=== PATIENT | female | born 1995 | race Two or more races ===

== ENCOUNTER 2018-08-15 13:20 | Inpatient (IN) | payer MEDICAID ==
[~2018-08-15] VITALS: Ht 160 cm; Wt 53.5 kg
[2018-08-15 16:33] LABS: HEMATOCRIT. 24.5 % (36.0-48.0); MEAN CORPUSCULAR HEMOGLOBIN 13.5 pg (28.0-32.0); MEAN CORPUSCULAR VOLUME 50.5 fL (81.0-99.0); PLATELET 444 x1000/uL (130-400); RED BLOOD CELL COUNT 4.84 mill/uL (4.2-5.4); RED CELL DISTRIBUTION WIDTH 22.9 % (11.6-14.6)
[2018-08-15 16:36] LABS: HEMOGLOBIN. 6.6 g/dL (12.0-16.0)
[2018-08-15 16:39] LABS: INR 1.3; PROTHROMBIN TIME 13.3 sec (9.1-11.1)
[2018-08-15 16:41] LABS: CHLORIDE 108 mEq/L (98-107)
[2018-08-15 16:57] LABS: PLATELET ESTIMATE INCREASED
[2018-08-15] MEDS ORDERED: SODIUM CHLORIDE 0.9% 1,000 ML IV SCH (18:44)
[2018-08-15 19:06] LABS: CLARITY URINE CLEAR (CLEAR); COLOR URINE YELLOW (YELLOW); KETONES URINE NEGATIVE (NEGATIVE); LEUKOCYTE ESTERASE URINE 3+ (NEGATIVE); NITRITE URINE NEGATIVE (NEGATIVE); OCCULT BLOOD URINE TRACE (NEGATIVE); PROTEIN URINE NEGATIVE (NEGATIVE); SPECIFIC GRAVITY URINE 1.011 (1.005-1.030); UROBILINOGEN URINE 0.2 E.U./dL (0.2-1.0)
[2018-08-16] VITALS (7 sets, daily range): BP systolic 101–120; BP diastolic 56–80
[2018-08-16 03:09] LABS: HEMATOCRIT. 28.6 % (36.0-48.0); HEMOGLOBIN. 7.9 g/dL (12.0-16.0); MEAN CORPUSCULAR HEMOGLOBIN 15.1 pg (28.0-32.0); MEAN CORPUSCULAR VOLUME 54.6 fL (81.0-99.0); MEAN PLATELET VOLUME 8.6 fl (7.4-10.4); PLATELET 398 x1000/uL (130-400); RED BLOOD CELL COUNT 5.24 mill/uL (4.2-5.4); RED CELL DISTRIBUTION WIDTH 27.9 % (11.6-14.6)
[2018-08-16 03:10] LABS: INR 1.3; PROTHROMBIN TIME 13.4 sec (9.1-11.1)
[2018-08-16 05:31] LABS: PLATELET ESTIMATE NORMAL
[2018-08-16 10:58] LABS: HEMATOCRIT. 28.3 % (36.0-48.0); HEMOGLOBIN. 7.7 g/dL (12.0-16.0); MEAN CORPUSCULAR HEMOGLOBIN 14.7 pg (28.0-32.0); MEAN CORPUSCULAR VOLUME 53.9 fL (81.0-99.0); MEAN PLATELET VOLUME 8.8 fl (7.4-10.4); PLATELET 357 x1000/uL (130-400); RED BLOOD CELL COUNT 5.26 mill/uL (4.2-5.4); RED CELL DISTRIBUTION WIDTH 26.1 % (11.6-14.6)
[2018-08-16 12:23] LABS: CHLORIDE 111 mEq/L (98-107)
[2018-08-16 12:34] LABS: TOTAL IRON BINDING CAPACITY 390 ug/dL (250-450)
[2018-08-16 21:29] LABS: PLATELET ESTIMATE NORMAL
== END 2018-08-16 16:35 | disposition home or self-care (01) | DRG 532 ==
LOC: ER 15:26 → 6EST 16:59 → EDBEDREQTM 17:01 → EDBEDREQ 17:01 → ENRESERV 21:11
PROVIDERS: ADMIT Internal Medicine; ATTEND Internal Medicine
PROC: 30233N1 Transfusion of Nonautologous Red Blood Cells into Peripheral Vein, Percutaneous Approach (ICD-10-PCS; principal; 2018-08-15)
DX: N92.0 Excessive and frequent menstruation with regular cycle (principal); D62 Acute posthemorrhagic anemia; D50.9 Iron deficiency anemia, unspecified
CPT/HCPCS: 36415; 36430; 76700; 80048; 82270; 83540; 83550; 85384; 86850; 86900; 86920; 96360; 99285; J7030; J7040; P9016

== ENCOUNTER 2019-11-18 10:44 | Emergency (ER) | payer MEDICAID ==
[~2019-11-18] VITALS: Ht 160 cm; Wt 55.0 kg
[2019-11-18 12:07] LABS: EOSINOPHILS % 0.8 % (0.0-5.0); HEMATOCRIT. 37.7 % (36.0-48.0); HEMOGLOBIN. 11.7 g/dL (12.0-16.0); LYMPHOCYTES % 25.5 % (20.0-50.0); MEAN CORPUSCULAR HEMOGLOBIN 19.6 pg (28.0-32.0); MEAN CORPUSCULAR VOLUME 63.4 fL (81.0-99.0); MEAN PLATELET VOLUME 9.1 fl (7.4-10.4); MONOCYTES % 8.9 % (2.0-8.0); NEUTROPHILS % 63.8 % (40.0-76.0); PLATELET 265 x1000/uL (130-400); RED BLOOD CELL COUNT 5.95 mill/uL (4.2-5.4); RED CELL DISTRIBUTION WIDTH 29.4 % (11.6-14.6)
[2019-11-18 12:08] LABS: CHLORIDE 106 mEq/L (98-107)
[2019-11-18 12:10] LABS: CLARITY URINE CLEAR (CLEAR); COLOR URINE YELLOW (YELLOW); KETONES URINE NEGATIVE (NEGATIVE); LEUKOCYTE ESTERASE URINE 1+ (NEGATIVE); NITRITE URINE NEGATIVE (NEGATIVE); OCCULT BLOOD URINE NEGATIVE (NEGATIVE); PROTEIN URINE NEGATIVE (NEGATIVE); SPECIFIC GRAVITY URINE 1.019 (1.005-1.030); UROBILINOGEN URINE 0.2 E.U./dL (0.2-1.0)
[2019-11-18 12:14] LABS: INR 1.4; PROTHROMBIN TIME 15.1 sec (9.6-11.0)
[2019-11-18 12:41] LABS: PLATELET ESTIMATE NORMAL
[2019-11-18 13:53] VITALS: BP 111/71
== END 2019-11-18 13:54 | disposition home or self-care (01) ==
LOC: ER 10:44
DX: N30.90 Cystitis, unspecified without hematuria (principal); R19.7 Diarrhea, unspecified; K92.1 Melena; D64.9 Anemia, unspecified
CPT/HCPCS: 36415; 80053; 81003; 81025; 85025; 99283